=== PATIENT | male | born 1980 | race Caucasian/White ===

== ENCOUNTER 2024-05-16 19:42 | Emergency (ER) | payer MEDICAID, OTHER ==
[~2024-05-16] VITALS: Ht 167.6 cm; Wt 78.0 kg
[2024-05-16 20:19] VITALS: BP 124/94; PULSE 112; RESP 14; TEMP 98.4; O2SAT 97
[2024-05-16] MEDS: ACETAMINOPHEN 325MG TABLET PO ONE (22:45)
[2024-05-17] MEDS ORDERED: NAPR-1176 MT (00:10)
[2024-05-17] MEDS ORDERED: LIDO700A15 TP (00:10)
== END 2024-05-17 00:16 | disposition home or self-care (01) ==
LOC: ER 19:42
DX: M25.511 Pain in right shoulder (principal); G31.89 Other specified degenerative diseases of nervous system; Y08.89XA Assault by other specified means, initial encounter; Y93.89 Activity, other specified; Y92.89 Other specified places as the place of occurrence of the external cause; Y99.8 Other external cause status
CPT/HCPCS: 73030; 99284